=== PATIENT | male | born 1970 | race Caucasian/White ===

== ENCOUNTER 2018-08-27 18:32 | Emergency (ER) | payer SELFPAY ==
[2018-08-27 18:36] VITALS: BP 160/89; PULSE 90; RESP 18; TEMP 36.8; O2SAT 98
[2018-08-27 19:45] VITALS: BP 153/78; PULSE 72; RESP 16; TEMP 36.6
--- NOTE | 2018-08-27 20:18 | ED.EYEPROB ---
HPI - Eye Problem <SOLIS Shah - Last Filed: 08/31/18 19:21> General Chief complaint: Eye Problems Stated complaint: SOMETHING IN LEFT EYE Time Seen by Provider: 08/27/18 19:28 Source: patient Mode of arrival: ambulatory Limitations: other History of Present Illness HPI Narrative: 48yoM with PMH of C6/C7 replacement, presents to the ED complaining of 2/10 left eye redness and irritation x 2 days that started gradually. Patient denies foreign body or recent illness, does not wear contacts. Denies vision changes, eye pain, profuse discharge, swelling, sinus pain, headache, photophobia, or sore throat. chief complaint: eye pain Onset (ago): day(s) Onset description: gradual Duration: constant Location: left eye Eye Symptoms: redness and itching Place: work ([employer], states no exposure for chemicals or flying material. ) Mechanism: none Severity: mild Severity scale (1-10): 2 Associated symptoms: none Treatments Prior to Arrival: none Related Data Previous Rx's Medication Instructions Recorded polymyxin B sulf-trimethoprim 1 drop EYE-LEFT QID #10 ml 08/27/18 Allergies Allergy/AdvReac Type Severity Reaction Status Date / Time No Known Drug Allergies Allergy Verified 08/27/18 18:39 PFSH <SOLIS Shah - Last Filed: 08/31/18 19:21> Medical History No significant medical problems (Chronic) Social History Smoking Status: Never smoker Social History Smoking Status: Never smoker Exam <SOLIS Shah - Last Filed: 08/31/18 19:21> Initial Vital Signs Initial Vital Signs: Vital Signs Temperature 98.3 F 08/27/18 18:36 Pulse Rate 90 08/27/18 18:36 Respiratory Rate 18 08/27/18 18:36 Blood Pressure 160/89 H 08/27/18 18:36 Pulse Oximetry 98 08/27/18 18:36 Const General: cooperative and well developed Nutritional Appearance: well nourished Orientation: alert, awake, oriented x3 and not confused [facility] Head: normocephalic and atraumatic Nose: external nose normal and No nasal discharge Face and sinus: sinuses nontender, face symmetric, no sinus tenderness and No dry mucous membranes Mouth: oral mucosae normal and moist mucous membranes Teeth and gingiva: dentition normal Throat: tonsils normal and uvula midline Eyes General: appearance normal, both eyes and all related structures Alignment and Position: alignment normal Eyelids: eyelids normal Conjunctivae: conjunctival abnormality (Reddness) left Sclera: scleral abnormality (reddness) left Pupils: PERRL EOM: EOM intact bilaterally (EOMS without pain. Eye nontender to palp) Other: No abraisions for foreign bodies noted with Fluorescein exam. Neck Neck: normal visual inspection, trachea midline, No lymphadenopathy, No midline deformity and No JVD Lymphatic: No lymphedema Chest Chest: normal inspection of the chest Resp Effort & Inspection: normal respiratory effort, able to speak in complete sentences, no respiratory distress and no use of accessory muscles Auscultation: clear to auscultation bilaterally, no rales, no rhonchi and no wheezes Cardio Rate: regular rate Rhythm: regular rhythm Heart Sounds: no click, no gallops, no murmurs and no rubs Pulses: normal peripheral pulses GI Inspection: normal to inspection Back/Spine/Pelvis Back: normal to inspection and CVA tenderness Skin General: no rashes or lesions noted, No jaundice and No petechiae Neuro General: alert, oriented x3, gait normal, no focal motor deficits, CN's II-XI intact bilaterally and not confused Cranial Nerves: EOM intact bilaterally Speech: speech normal Gait: normal gait Extrem General: no clubbing, cyanosis or edema Psych Appearance: well kempt Mental Status: mental status grossly normal Attitude: cooperative Thought Content: normal and suicidality Judgment: judgment good <Montrell Lan DO - Last Filed: 08/31/18 20:34> Initial Vital Signs Initial Vital Signs: Vital Signs Temperature 98.3 F 08/27/18 18:36 Pulse Rate 90 08/27/18 18:36 Respiratory Rate 18 08/27/18 18:36 Blood Pressure 160/89 H 08/27/18 18:36 Pulse Oximetry 98 08/27/18 18:36 Course <SOLIS Shah - Last Filed: 08/31/18 19:21> Vital Signs - 8 hr 08/27/18 18:36 08/27/18 19:45 Temperature 98.3 F 97.8 F Pulse Rate 90 72 Respiratory Rate 18 16 Blood Pressure 160/89 H Blood Pressure [Left Arm] 153/78 H Pulse Oximetry 98 <Montrell Lan DO - Last Filed: 08/31/18 20:34> Vital Signs - 8 hr 08/27/18 18:36 08/27/18 19:45 Temperature 98.3 F 97.8 F Pulse Rate 90 72 Respiratory Rate 18 16 Blood Pressure 160/89 H Blood Pressure [Left Arm] 153/78 H Pulse Oximetry 98 MDM - Eye Problem <Stephanie QueenSOLIS - Last Filed: 08/31/18 19:21> Differential Diagnosis Likely corneal abrasion Medical Records Attestation: I reviewed the patient's medical records. [facility] Narrative Medical decision making narrative: Most likely conjunctivitis of bacterial origin (occurring unilaterally, symptoms occurring gradually, no risk factors for foreign body in eye, no risk factors for corneal abrasion, No foreign bodies on examination). differential includes viral conjunctivitis, or previous foreign body as no longer in eye. Not concerned for any acute and a due to lack of pain, EMOIs without pain, or change in vision. Strict follow-up precautions given. Discharge Plan Departure Patient Disposition: Home Clinical Impression: Conjunctivitis Qualifiers: Conjunctivitis type: acute Acute conjunctivitis type: unspecified Laterality: left Qualified Code(s): H10.32 - Unspecified acute conjunctivitis, left eye Discharge Date/Time: 08/27/18 20:10 Interventions: ED Discharge Assessment Last Done: 08/27/18 20:14 Instructions: Conjunctivitis Activity Restrictions/Additional Instructions: Thank you for entrusting me with you care today. Your symptoms appear to be caused by an infection in your. I prescribed antibiotics as eye drops. Place 1-2 drops in your affected eye every 6 hours while awake. Return if you develop pressure, vision changes, or severe eye pain. Prescriptions: New polymyxin B sulf-trimethoprim 10,000 unit- 1 mg/mL drops 1 drop EYE-LEFT QID Qty: 10 RF: 0 <Montrell Lan DO - Last Filed: 08/31/18 20:34> Cosign ED Attending Wilian Attestation: I was available for consultation during this patient's emergency department encounter
--- NOTE | 2018-08-27 20:30 | ED_ITS ---
HPI - Eye Problem <SOLIS Shah - Last Filed: 08/31/18 19:21> General Chief complaint: Eye Problems Stated complaint: SOMETHING IN LEFT EYE Time Seen by Provider: 08/27/18 19:28 Source: patient Mode of arrival: ambulatory Limitations: other History of Present Illness HPI Narrative: 48yoM with PMH of C6/C7 replacement, presents to the ED complaining of 2/10 left eye redness and irritation x 2 days that started gradually. Patient denies foreign body or recent illness, does not wear contacts. Denies vision changes, eye pain, profuse discharge, swelling, sinus pain, headache, photophobia, or sore throat. chief complaint: eye pain Onset (ago): day(s) Onset description: gradual Duration: constant Location: left eye Eye Symptoms: redness and itching Place: work ([employer], states no exposure for chemicals or flying material. ) Mechanism: none Severity: mild Severity scale (1-10): 2 Associated symptoms: none Treatments Prior to Arrival: none Related Data Previous Rx's Medication Instructions Recorded polymyxin B sulf-trimethoprim 1 drop EYE-LEFT QID #10 ml 08/27/18 Allergies Allergy/AdvReac Type Severity Reaction Status Date / Time No Known Drug Allergies Allergy Verified 08/27/18 18:39 PFSH <SOLIS Shah - Last Filed: 08/31/18 19:21> Medical History No significant medical problems (Chronic) Social History Smoking Status: Never smoker Social History Smoking Status: Never smoker Exam <SOLIS Shah - Last Filed: 08/31/18 19:21> Initial Vital Signs Initial Vital Signs: Vital Signs Temperature 98.3 F 08/27/18 18:36 Pulse Rate 90 08/27/18 18:36 Respiratory Rate 18 08/27/18 18:36 Blood Pressure 160/89 H 08/27/18 18:36 Pulse Oximetry 98 08/27/18 18:36 Const General: cooperative and well developed Nutritional Appearance: well nourished Orientation: alert, awake, oriented x3 and not confused [facility] Head: normocephalic and atraumatic Nose: external nose normal and No nasal discharge Face and sinus: sinuses nontender, face symmetric, no sinus tenderness and No dry mucous membranes Mouth: oral mucosae normal and moist mucous membranes Teeth and gingiva: dentition normal Throat: tonsils normal and uvula midline Eyes General: appearance normal, both eyes and all related structures Alignment and Position: alignment normal Eyelids: eyelids normal Conjunctivae: conjunctival abnormality (Reddness) left Sclera: scleral abnormality (reddness) left Pupils: PERRL EOM: EOM intact bilaterally (EOMS without pain. Eye nontender to palp) Other: No abraisions for foreign bodies noted with Fluorescein exam. Neck Neck: normal visual inspection, trachea midline, No lymphadenopathy, No midline deformity and No JVD Lymphatic: No lymphedema Chest Chest: normal inspection of the chest Resp Effort & Inspection: normal respiratory effort, able to speak in complete sentences, no respiratory distress and no use of accessory muscles Auscultation: clear to auscultation bilaterally, no rales, no rhonchi and no wheezes Cardio Rate: regular rate Rhythm: regular rhythm Heart Sounds: no click, no gallops, no murmurs and no rubs Pulses: normal peripheral pulses GI Inspection: normal to inspection Back/Spine/Pelvis Back: normal to inspection and CVA tenderness Skin General: no rashes or lesions noted, No jaundice and No petechiae Neuro General: alert, oriented x3, gait normal, no focal motor deficits, CN's II-XI intact bilaterally and not confused Cranial Nerves: EOM intact bilaterally Speech: speech normal Gait: normal gait Extrem General: no clubbing, cyanosis or edema Psych Appearance: well kempt Mental Status: mental status grossly normal Attitude: cooperative Thought Content: normal and suicidality Judgment: judgment good <Montrell Lan DO - Last Filed: 08/31/18 20:34> Initial Vital Signs Initial Vital Signs: Vital Signs Temperature 98.3 F 08/27/18 18:36 Pulse Rate 90 08/27/18 18:36 Respiratory Rate 18 08/27/18 18:36 Blood Pressure 160/89 H 08/27/18 18:36 Pulse Oximetry 98 08/27/18 18:36 Course <SOLIS Shah - Last Filed: 08/31/18 19:21> Vital Signs - 8 hr 08/27/18 18:36 08/27/18 19:45 Temperature 98.3 F 97.8 F Pulse Rate 90 72 Respiratory Rate 18 16 Blood Pressure 160/89 H Blood Pressure [Left Arm] 153/78 H Pulse Oximetry 98 <Montrell Lan DO - Last Filed: 08/31/18 20:34> Vital Signs - 8 hr 08/27/18 18:36 08/27/18 19:45 Temperature 98.3 F 97.8 F Pulse Rate 90 72 Respiratory Rate 18 16 Blood Pressure 160/89 H Blood Pressure [Left Arm] 153/78 H Pulse Oximetry 98 MDM - Eye Problem <Stephanie QueenSOLIS - Last Filed: 08/31/18 19:21> Differential Diagnosis Likely corneal abrasion Medical Records Attestation: I reviewed the patient's medical records. [facility] Narrative Medical decision making narrative: Most likely conjunctivitis of bacterial origin (occurring unilaterally, symptoms occurring gradually, no risk factors for foreign body in eye, no risk factors for corneal abrasion, No foreign xavi dies on examination). differential includes viral conjunctivitis, or previous foreign body as no longer in eye. Not concerned for any acute and a due to lack of pain, EMOIs without pain, or change in vision. Strict follow-up precautions given. Discharge Plan Departure Patient Disposition: Home Clinical Impression: Conjunctivitis Qualifiers: Conjunctivitis type: acute Acute conjunctivitis type: unspecified Laterality: left Qualified Code(s): H10.32 - Unspecified acute conjunctivitis, left eye Discharge Date/Time: 08/27/18 20:10 Interventions: ED Discharge Assessment Last Done: 08/27/18 20:14 Instructions: Conjunctivitis Activity Restrictions/Additional Instructions: Thank you for entrusting me with you care today. Your symptoms appear to be caused by an infection in your. I prescribed antibiotics as eye drops. Place 1-2 drops in your affected eye every 6 hours while awake. Return if you develop pressure, vision changes, or severe eye pain. Prescriptions: New polymyxin B sulf-trimethoprim 10,000 unit- 1 mg/mL drops 1 drop EYE-LEFT QID Qty: 10 RF: 0 <Montrell Lan DO - Last Filed: 08/31/18 20:34> Cosign ED Attending Wilian Attestation: I was available for consultation during this patient's emergency department encounter
== END 2018-08-27 20:10 | disposition home or self-care (01) ==
PROVIDERS: Emergency Provider Nurse Practitioner
DX: H10.32 Unspecified acute conjunctivitis, left eye (principal)
CPT/HCPCS: 99282; 99283